=== PATIENT | female | born 1950 | race Caucasian/White ===

== ENCOUNTER 2019-01-20 20:57 | Emergency (ER) | payer OTHER, MEDICAID ==
[~2019-01-20] VITALS: Ht 170.2 cm; Wt 83.9 kg
[2019-01-20 21:00] VITALS: BP_SYST 146
[2019-01-20 23:29] VITALS: BP_SYST 142
== END 2019-01-20 23:29 | disposition home or self-care (01) ==
LOC: SED 20:57
DX: S82.141A Displaced bicondylar fracture of right tibia, initial encounter for closed fracture (principal); I10 Essential (primary) hypertension; Z88.0 Allergy status to penicillin; W18.39XA Other fall on same level, initial encounter; Y93.89 Activity, other specified; Y92.89 Other specified places as the place of occurrence of the external cause; Y99.8 Other external cause status
CPT/HCPCS: 73564; 99283